=== PATIENT | female | born 1960 | race Caucasian/White ===

== ENCOUNTER → 2023-10-08 07:32 | Outpatient (REF) | payer OTHER, SELFPAY | LOC: RAD 07:32 | PROVIDERS: ATTENDING PHYSICIAN Family Medicine | DX: Z87.891 Personal history of nicotine dependence (principal) | CPT/HCPCS: 71271 ==

== ENCOUNTER → 2024-09-27 10:23 | Outpatient (REF) | payer OTHER, SELFPAY | LOC: WDC 10:23 | PROVIDERS: ATTENDING PHYSICIAN Family Medicine | DX: Z12.31 Encounter for screening mammogram for malignant neoplasm of breast (principal) | CPT/HCPCS: 77063; 77067 ==

== ENCOUNTER → 2024-10-10 10:02 | Outpatient (REF) | payer OTHER, SELFPAY | LOC: HWRAD 10:02 | PROVIDERS: ATTENDING PHYSICIAN Family Medicine | DX: Z87.891 Personal history of nicotine dependence (principal) | CPT/HCPCS: 71271 ==

== ENCOUNTER 2025-03-10 17:17 | Emergency (ER) | payer OTHER, SELFPAY ==
[2025-03-10 17:36] VITALS: BP 166/87
[2025-03-10 18:02] LABS: Hematocrit 43.7 % (37.0-47.0); Hemoglobin 15.2 g/dL (12.0-16.0); Mean Corp Hgb Conc. 34.8 g/dL (33.0-37.0); Mean Corpuscular Volume 84.2 fL (81.0-99.0); Nucleated Red Blood Cells % 0 %; Platelet Count 286 10^3/uL (130-400); Red Cell Dist. Width 12.6 % (11.5-14.5)
[2025-03-10 18:19] LABS: ALT (SGPT) 21 U/L (0-35); AST (SGOT) 21 U/L (14-36); Albumin 4.9 g/dl (3.5-5.0); Alkaline Phosphatase 82 U/L (38-126); Blood Urea Nitrogen 23 mg/dl (7-17); Calcium 9.9 mg/dl (8.4-10.2); Carbon Dioxide 25 mmol/L (22-30); Chloride 104 mmol/L (98-107); Glucose 123 mg/dl (70-99); Lipase 46 U/L (23-300); Potassium 4.4 mmol/L (3.5-5.1); Sodium 138 mmol/L (135-145); Total Protein 7.9 g/dl (6.3-8.2); eGFR > 60.00
--- NOTE | 2025-03-10 18:26 | ED.GENMED ---
History of Present Illness
General
Chief Complaint: Flank Pain
Source: patient
Exam Limitations: none
Time Seen by Provider: 03/10/25 18:16
Nursing documentation reviewed up to this point in time: agreed with
History of Present Illness
History of Present Illness:
Patient is a 64-year-old female with past medical history of diverticulitis renal stones diabetes presents to the ER for left back /buttock pain rating to her left groin. This started yesterday. She reports she had something similar to this 3
months ago and also had difficulty urinating while she had the pain. That did resolve on its own. She has no prior history of renal stones. She feels the radiation stop in her left groin. She denies any fever or chills. She does feel slight
worsening discomfort when she tries to bend over. She denies any bowel or bladder incontinence.
She denies any fever or chills. She denies any injury. She did go to her chiropractor today thinking it was muscular which did not relieve her symptoms. She does have history of back issues in the past.
Phy Exam
General Physical Exam
General Presentation: no apparent distress
General age: appears stated age
General Skin: warm and dry
General Habitus: normal
General Hydration: appears well hydrated
Cardiovascular Exam
Cardiovascular Exam: regular rate/rhythm, no murmur and normal peripheral pulses
Pulmonary Exam
Pulmonary Exam: lungs clear and no respiratory distress
Gastrointestinal Exam
Gastrointestinal Exam: non tender and soft
Neurological Exam
Neurological Exam: alert, oriented x3 and other (Intact sensation to bilateral lower extremities normal dorsiflexion plantarflexion)
Musculoskeletal Exam
Musculoskeletal Exam: full ROM and other (Normal inspection to back end developer over the left sciatic area full range of motion to left lower extremity)
Skin Exam
Skin Exam: normal color and warm/dry
Psychiatric Exam
Psychiatric Exam: normal mood/affect
Course
Orders/Labs/Results
Orders:
Orders
03/10/25 17:48
Complete Blood Count/With Diff Urgent
Comprehensive Metabolic Panel Urgent
Lipase Urgent
03/10/25 18:34
Ketorolac [Toradol] 15 mg IV NOW STA
Ondansetron Injectable [Zofran] 4 mg IV NOW STA
03/10/25 18:35
0.9% Sodium Chloride 1000 ml [Nss] 1,000 ml IV BOLUS
03/10/25 19:45
CT Abd/pel Without Iv Or Oral Urgent
Comment:
Reason For Exam: left flank pain
03/10/25 19:55
HYDROmorphone [Dilaudid] 1 mg IV NOW STA
03/10/25 19:56
HYDROmorphone [Dilaudid] 1 mg .ROUTE .STK-MED ONE
03/10/25 20:36
Urinalysis Reflex To Culture Urgent
Date Specimen was Collected: 03/10/25
Time Specimen was Collected: 17:41
Urine Microscopic Reflex Cult Urgent
Abnormal Lab Results
03/10/25 03/10/25
17:48 20:36
WBC 11.2 H 10^3/uL
(4.8-10.8)
Absolute Neuts (auto) 7.9 H 10^3/uL
(1.4-6.5)
Absolute Monos (auto) 0.7 H 10^3/uL
(0.1-0.6)
BUN 23 H mg/dl
(7-17)
Glucose 123 H mg/dl
(70-99)
Urine Ketones 1+ A
(Negative)
Urine Bacteria (Reflex) Few A
(Negative)
Urine Albumin (Reflex) 1+ A
(Neg - Trace)
03/10/25 17:48
03/10/25 17:48
Vital Signs
Initial and Last Documented VS:
Initial Vital Signs
Temp Pulse Resp BP Pulse Ox
97.9 F 107 20 166/87 97
03/10/25 17:36 03/10/25 17:36 03/10/25 17:36 03/10/25 17:36 03/10/25 17:36
Last Documented Vital Signs
Temp Pulse Resp BP Pulse Ox
98.5 F 88 18 163/77 95
03/10/25 22:09 03/10/25 22:09 03/10/25 22:09 03/10/25 22:09 03/10/25 22:09
MDM/Problems Addressed
Differential Diagnosis Includes:
Not limited to muscle pain, less likely kidney stone, sciatica
MDM/Problems Addressed:
Symptoms are consistent with sciatica. Patient complains of pain to left buttock area which wraps around to her left groin. CAT scan was done to rule out a kidney stone which is unremarkable. Urine is negative for infection patient with no
neurological deficits
*Radiology
Radiology exam reviewed: radiology read reviewed
*Pulse Oximetry
SaO2: 97
Oxygen Mode of Delivery: Room air
Patient hypoxic: no
*Critical Care Note
Total Time (30-74mins, 75-104mins- exclusive of procedures): Not Applicable
ED Attending Note
-
Portions of this chart may have been created with voice recognition software.� Occasional wrong word or��sound alike� substitutions may have occurred due to the inherent limitations of voice recognition software.
Discharge Plan
Departure
Patient Disposition: Home (Routine Discharge)
Date of Disposition: 03/10/25
Time of Disposition: 22:30
Patient with high blood pressure during this ER visit?: Yes
Condition: Fair
Covid-19: Not Applicable
Discharge Problem:
Sciatica
Instructions: Sciatica - ED (DC), BLOOD PRESSURE
Prescriptions:
New
prednisone 10 mg Tablet
See Rx Instructions .ROUTE .COMPLEX Qty: 30 0RF
Rx Instructions:
Take By Mouth:
40 mg daily x3 days, 30 mg daily x3 days,
20 mg daily x3 days, 10 mg daily x3 days.
Referrals:
Riaz Llanos DO [Family Provider, Family Practice]
Activity Restrictions/Additional Instructions:
As discussed symptoms are consistent with sciatica. A prescription for steroids was sent to your pharmacy take as directed this is a steroid taper. Start tomorrow. In addition may alternate with Tylenol you may take your Flexeril at home. Avoid
heavy lifting. Increase fluids
Follow-up with your family doctor in the next several days return if any worsening of symptoms.
Interventions
Interventions:
*Risk Screen - Suicide Last Done: 03/10/25 18:49
*General Assessment Last Done: 03/10/25 18:49
*Neglect/Abuse Screening Last Done: 03/10/25 18:49
*ED- Fall Risk Assessment Last Done: 03/10/25 18:49
*ED COVID-19 Vaccine History Last Done: 03/10/25 18:49
GH-Oguxct-Prxbtoqvbt Assessment Last Done: 03/10/25 18:51
ED-Female Genitourinary Assessment Last Done: 03/10/25 18:51
Discharge Date and Time
Print Language: LAO
[2025-03-10] MEDS: TORADOL 15 MG IV (18:48)
[2025-03-10] MEDS: ZOFRAN 4 MG IV (18:48)
[2025-03-10] MEDS: NSS 1000 IV (18:48)
[2025-03-10 18:49] VITALS: BMI 32.3
[2025-03-10] MEDS: DILAUDID 1 MG IV (19:56)
[2025-03-10 20:46] LABS: Urine Character Clear (Clear)
[2025-03-10 20:52] LABS: Urine Red Blood Cell 0-2 /HPF (0-2); Urine White Cell 0-2 /HPF (0-5)
[2025-03-10 22:09] VITALS: BP 163/77
[2025-03-10] MEDS: DECADRON 10 MG IM (22:52)
[2025-03-10] MEDS: TYLENOL 1000 MG PO (22:52)
== END 2025-03-10 23:00 | disposition home or self-care (01) ==
LOC: EMR 17:17
PROVIDERS: Emergency Medicine; EMERGENCY PHYSICIAN Student in an Organized Health Care Education/Training Program; FAMILY PHYSICIAN Family Medicine
DX: M54.30 Sciatica, unspecified side (principal); E11.9 Type 2 diabetes mellitus without complications; Z87.442 Personal history of urinary calculi; Z90.49 Acquired absence of other specified parts of digestive tract
CPT/HCPCS: 99284; 96374; 96375; 96372; 96361; 74176; 80053; 81003; 81015; 83690; 85025

== ENCOUNTER → 2025-04-08 12:32 | Outpatient (REF) | payer OTHER, SELFPAY | LOC: PAVMRI 12:32 | PROVIDERS: ATTENDING PHYSICIAN Nurse Practitioner Family | DX: M53.9 Dorsopathy, unspecified (principal) | CPT/HCPCS: 72148 ==